=== PATIENT | female | born 1970 | race Caucasian/White ===

== ENCOUNTER 2016-11-08 11:58 | Day surgery (SDC) | payer MEDICAID ==
[2016-11-05 14:15] LABS: HEMATOCRIT 52.7 % (34.6-47.8); HEMOGLOBIN 17.5 g/dL (11.7-16.4); WHITE BLOOD COUNT 10.6 x10^3/uL (3.4-10)
[2016-11-05 14:22] LABS: BLOOD UREA NITROGEN 18 mg/dL (7-18)
[~2016-11-08] VITALS: Ht 160 cm; Wt 56.4 kg
[~2016-11-08 11:58] MED LIST: ALBU18HF INH
[2016-11-08] MEDS ORDERED: FLUT1AER INH (12:36)
[2016-11-08] MEDS ORDERED: VERAPAMIL 2.5 MG/ML, 2ML ONE (15:20)
[2016-11-08] MEDS ORDERED: FENTANYL PF 100 MCG/2ML ONE (15:20)
[2016-11-08] MEDS ORDERED: MIDAZOLAM 1 MG/ML, 5ML ONE (15:20)
[2016-11-08] MEDS ORDERED: TICAGRELOR 90 MG TABLET ONE (15:21)
[2016-11-08] MEDS ORDERED: LIDOCAINE 2%, 20ML ONE (15:21)
[2016-11-08] MEDS ORDERED: BIVALIRUDIN 250 MG ONE (15:21)
[2016-11-08] MEDS ORDERED: HEPARIN 1,000 UNITS/ML, 10ML ONE (15:21)
[2016-11-08] MEDS ORDERED: DIPHENHYDRAMINE 50 MG/ML, 1ML ONE (15:26)
[2016-11-08] MEDS ORDERED: ADENOSINE IV PRN (16:00)
[2016-11-08] MEDS ORDERED: SODIUM CHLORIDE 0.9% IV PRN (16:00)
[2016-11-08] MEDS ORDERED: ALBUTEROL SULFATE 2.5 MG/3 ML HHN PRN (17:00)
[2016-11-08] MEDS ORDERED: SPIR25TA PO ×2 (17:11→17:12)
[2016-11-08] MEDS ORDERED: FLUTICASONE/VILANTEROL 100-25MCG/INH INH SCH (21:00)
== END 2016-11-08 18:42 | disposition home or self-care (01) ==
LOC: CACL 11:58 → 5SO 16:34 → CACL 18:42
PROVIDERS: ATTEND Internal Medicine Cardiovascular Disease
DX: I27.2 Other secondary pulmonary hypertension (principal); I10 Essential (primary) hypertension; Z79.899 Other long term (current) drug therapy
CPT/HCPCS: 36415; 71020; 80048; 85025; 85610; 85730; 93451; 93463; 99156; 99157; C1769; C1894; J2250; J3010; J3490; J0583; J1644; J1200

== ENCOUNTER → 2017-04-29 | Outpatient (CLI) | payer MEDICAID ==
[~2017-04-29] MED LIST changes: +FLUT1AER INH; +REGADENOSON 0.4 MG/5 ML SYRINGE ONE; +SPIR25TA PO
== END | disposition home or self-care (01) ==
LOC: CFH 08:15
PROVIDERS: ATTEND Nurse Practitioner Family
DX: R07.9 Chest pain, unspecified (principal)
CPT/HCPCS: 78452; 93017; A9502; J2785

== ENCOUNTER → 2017-10-04 | Outpatient (CLI) | payer MEDICAID ==
[~2017-10-04] MED LIST changes: -REGADENOSON 0.4 MG/5 ML SYRINGE ONE
== END | disposition home or self-care (01) ==
LOC: CFH 15:51
PROVIDERS: ATTEND Internal Medicine Cardiovascular Disease
DX: I27.20 Pulmonary hypertension, unspecified (principal); I35.1 Nonrheumatic aortic (valve) insufficiency; Z87.891 Personal history of nicotine dependence
CPT/HCPCS: 93306